=== PATIENT | male | born 1950 | race Caucasian/White ===

== ENCOUNTER 2019-10-11 07:55 | Inpatient (IN) ==
[2019-10-11 08:19] LABS: Basophils % 0.2 %; Eosinophils % 0.2 %; Hematocrit 51.2 % (37.5-50.1); Hemoglobin 16.8 g/dL (12.9-16.9); Immature Granulocytes % 0.5 % (0-4); Lymphocytes % 5.9 %; Mean Corpuscular HGB Conc 32.8 g/dL (31.6-35.5); Mean Corpuscular Hemoglobin 30.5 pg (28.0-33.3); Mean Corpuscular Volume 93.1 fL (83.0-100.0); Mean Platelet Volume 10.8 fL (9.4-12.4); Monocytes # 0.9 K/mcL (0.0-1.3); Monocytes % 5.5 %; Neutrophils # 14.7 K/mcL (1.6-8.9); Platelet Count 221 K/mcL (140-400); Red Cell Distribution Width 14.4 % (11.5-14.5); Segmented Neutrophils % 87.7 %; White Blood Count 16.7 K/mcL (4.3-11.1)
[2019-10-11 08:32] LABS: Alanine Aminotransferase 18 Units/L (7-52); Albumin 4.4 g/dL (3.5-5.7); Albumin/Globulin Ratio 1.4 (1.1-2.2); Alkaline Phosphatase 68 Units/L (34-104); Aspartate Amino Transferase 15 Units/L (13-39); BUN/Creatinine Ratio 16 (6-26); Blood Urea Nitrogen 14 mg/dL (8-23); Calcium 9.4 mg/dL (8.6-10.3); Carbon Dioxide 29 mEq/L (23-29); Chloride 93 mEq/L (98-107); Globulin 3.2 g/dL (2.4-3.5); Glucose 116 mg/dL (70-105); Osmolality,Calculated 271 (280-300); Potassium 3.7 mEq/L (3.5-5.1); Sodium 130 mEq/L (136-145); Total Protein 7.6 g/dL (6.4-8.9); eGFR For African Americans > 60 (> 60); eGFR For Non-African Americans > 60 (> 60)
[2019-10-11] MEDS ORDERED: *HR* OxyCODONE/APAP 5/325 TABLET PO STA (09:31)
[2019-10-11] MEDS ORDERED: Piperacillin/Tazobactam 3.375 GM in Water for inj. (sterile) 20 ML IVP ONE (11:14)
[2019-10-11] MEDS ORDERED: 0.9 % Sodium Chloride 1,000 ML IVC SCH (11:15)
[2019-10-11] MEDS ORDERED: Ipratropium Neb 0.5 MG NEBULIZER IH PRN (11:17)
[2019-10-11 13:21] LABS: Bilirubin,Urine Negative (Negative); Blood,Urine Negative (Negative); Clarity,Urine Clear (Clear); Color,Urine Yellow (Yellow); Glucose,Urine (UA) Normal (Normal); Ketones,Urine Negative (Negative); Leukocyte Esterase,Urine Negative (Negative); Nitrite,Urine Negative (Negative); Protein,Urine 100 mg/dL (Neg-Trace)
[2019-10-11 13:42] LABS: WBC,Urine 0-3 per hpf (0-3)
[2019-10-11 13:43] LABS: Bacteria,Urine Few per hpf (None-Few); Squamous Epithelial Cell,Urine Few per lpf (None-Few)
[2019-10-11] MEDS: 0.9 % Sodium Chloride 1,000 ML IVC SCH (13:55)
[2019-10-11] MEDS: Ipratropium/Albuterol Neb 3 ML IH SCH ×2 (14:52→22:05)
[2019-10-11] MEDS ORDERED: Albuterol 2.5 MG/3 ML NEBULIZER IH SCH (15:00)
[2019-10-11] MEDS: *HR* OxyCODONE/APAP 5/325 TABLET PO PRN ×2 (16:10→22:32)
[2019-10-11] MEDS: Meropenem 1,000 MG in 0.9 % Sodium Chloride Mini Bag 100 ML IVPB SCH (20:43)
[2019-10-11] MEDS ORDERED: Budesonide/Formoterol 80/4.5 1 PUFF INH IH SCH (22:00)
[2019-10-11] MEDS: Budesonide/Formoterol 160/4.5 1 PUFF INH IH SCH (22:14)
[2019-10-12] MEDS: 0.9 % Sodium Chloride 1,000 ML IVC SCH ×2 (00:52→14:07)
[2019-10-12] MEDS: Meropenem 1,000 MG in 0.9 % Sodium Chloride Mini Bag 100 ML IVPB SCH ×2 (01:32→07:51)
[2019-10-12 05:33] LABS: Hematocrit 45.4 % (37.5-50.1); Mean Corpuscular HGB Conc 31.7 g/dL (31.6-35.5); Mean Corpuscular Hemoglobin 29.5 pg (28.0-33.3); Mean Platelet Volume 10.4 fL (9.4-12.4); Platelet Count 180 K/mcL (140-400); Red Blood Count 4.88 M/mcL (4.19-5.50); Red Cell Distribution Width 14.4 % (11.5-14.5); White Blood Count 11.9 K/mcL (4.3-11.1)
[2019-10-12 05:35] LABS: Hemoglobin 14.4 g/dL (12.9-16.9)
[2019-10-12 05:50] LABS: Alanine Aminotransferase 16 Units/L (7-52); Albumin 3.6 g/dL (3.5-5.7); Albumin/Globulin Ratio 1.1 (1.1-2.2); Alkaline Phosphatase 51 Units/L (34-104); Aspartate Amino Transferase 11 Units/L (13-39); BUN/Creatinine Ratio 16 (6-26); Bilirubin,Total 0.6 mg/dL (0.3-1.0); Blood Urea Nitrogen 12 mg/dL (8-23); Calcium 8.1 mg/dL (8.6-10.3); Carbon Dioxide 28 mEq/L (23-29); Chloride 101 mEq/L (98-107); Globulin 3.2 g/dL (2.4-3.5); Glucose 122 mg/dL (70-105); Magnesium 2.1 mg/dL (1.6-2.6); Osmolality,Calculated 279 (280-300); Potassium 3.8 mEq/L (3.5-5.1); Sodium 134 mEq/L (136-145); Total Protein 6.8 g/dL (6.4-8.9); eGFR For African Americans > 60 (> 60); eGFR For Non-African Americans > 60 (> 60)
[2019-10-12] MEDS: *HR* Enoxaparin 40 MG/0.4 ML SYRINGE SQ SCH (06:22)
[2019-10-12] MEDS: *HR* OxyCODONE/APAP 5/325 TABLET PO PRN ×3 (06:27→21:38)
[2019-10-12] MEDS: Ipratropium/Albuterol Neb 3 ML IH SCH ×3 (07:36→21:22)
[2019-10-12] MEDS: Budesonide/Formoterol 160/4.5 1 PUFF INH IH SCH ×2 (07:38→21:21)
[2019-10-12] MEDS: Furosemide 40 MG TABLET PO SCH (07:50)
[2019-10-12] MEDS ORDERED: Levalbuterol Neb 0.63 MG/3 ML ONE (08:39)
[2019-10-12] MEDS ORDERED: Levalbuterol Neb 1.25 MG/3 ML ONE (08:39)
[2019-10-12] MEDS ORDERED: TRIAMCINOLONE ACETONIDE 15 GM TP SCH (09:00)
[2019-10-12 09:30] LABS: Estimated Average Glucose 148 mg/dl
[2019-10-12] MEDS ORDERED: Isovue-370 500 ML BOTTLE IVP ONE (16:23)
[2019-10-12] MEDS: Cefepime HCl 1,000 MG in Water for inj. (sterile) 10 ML IVP SCH (17:15)
[2019-10-13 05:52] LABS: Basophils % 0.5 %; Eosinophils # 0.3 K/mcL (0.0-0.6); Eosinophils % 3.1 %; Hematocrit 43.9 % (37.5-50.1); Hemoglobin 14.1 g/dL (12.9-16.9); Immature Granulocytes % 0.6 % (0-4); Lymphocytes # 1.1 K/mcL (0.6-4.6); Lymphocytes % 12.9 %; Mean Corpuscular HGB Conc 32.1 g/dL (31.6-35.5); Mean Corpuscular Hemoglobin 29.9 pg (28.0-33.3); Mean Corpuscular Volume 93.2 fL (83.0-100.0); Mean Platelet Volume 10.9 fL (9.4-12.4); Monocytes % 11.5 %; Neutrophils # 6.3 K/mcL (1.6-8.9); Platelet Count 199 K/mcL (140-400); Red Blood Count 4.71 M/mcL (4.19-5.50); Red Cell Distribution Width 14.2 % (11.5-14.5); Segmented Neutrophils % 71.4 %; White Blood Count 8.8 K/mcL (4.3-11.1)
[2019-10-13] MEDS: *HR* OxyCODONE/APAP 5/325 TABLET PO PRN ×2 (06:00→12:15)
[2019-10-13] MEDS: Cefepime HCl 1,000 MG in Water for inj. (sterile) 10 ML IVP SCH (06:02)
[2019-10-13] MEDS: *HR* Enoxaparin 40 MG/0.4 ML SYRINGE SQ SCH (06:05)
[2019-10-13 06:07] LABS: BUN/Creatinine Ratio 17 (6-26); Blood Urea Nitrogen 12 mg/dL (8-23); Calcium 8.4 mg/dL (8.6-10.3); Carbon Dioxide 26 mEq/L (23-29); Chloride 103 mEq/L (98-107); Glucose 116 mg/dL (70-105); Osmolality,Calculated 281 (280-300); Potassium 3.7 mEq/L (3.5-5.1); Sodium 135 mEq/L (136-145); eGFR For African Americans > 60 (> 60); eGFR For Non-African Americans > 60 (> 60)
[2019-10-13] MEDS: Ipratropium/Albuterol Neb 3 ML IH SCH ×3 (06:39→21:31)
[2019-10-13] MEDS: Furosemide 40 MG TABLET PO SCH (09:25)
[2019-10-13] MEDS: Budesonide/Formoterol 160/4.5 1 PUFF INH IH SCH ×2 (10:37→21:37)
[2019-10-13] MEDS: Cefepime HCl 2,000 MG in Water for inj. (sterile) 20 ML IVP SCH (17:01)
[2019-10-14] MEDS: *HR* OxyCODONE/APAP 5/325 TABLET PO PRN ×2 (02:59→22:06)
[2019-10-14] MEDS: *HR* Enoxaparin 40 MG/0.4 ML SYRINGE SQ SCH (06:15)
[2019-10-14] MEDS: Cefepime HCl 2,000 MG in Water for inj. (sterile) 20 ML IVP SCH ×2 (06:16→17:57)
[2019-10-14] MEDS: Ipratropium/Albuterol Neb 3 ML IH SCH ×3 (06:17→21:14)
[2019-10-14 06:33] LABS: eGFR For African Americans > 60 (> 60); eGFR For Non-African Americans > 60 (> 60)
[2019-10-14] MEDS: Furosemide 40 MG TABLET PO SCH (08:01)
[2019-10-14] MEDS ORDERED: Aminoglycoside Consult 1 EACH MC ONE (08:44)
[2019-10-14] MEDS: Budesonide/Formoterol 160/4.5 1 PUFF INH IH SCH ×2 (10:54→21:14)
[2019-10-14] MEDS: Furosemide 40 MG/4 ML VIAL IVP SCH (22:07)
[2019-10-15 05:42] LABS: Basophils # 0.1 K/mcL (0.0-0.2); Basophils % 0.6 %; Eosinophils # 0.5 K/mcL (0.0-0.6); Eosinophils % 5.9 %; Hematocrit 47.3 % (37.5-50.1); Immature Granulocytes % 0.4 % (0-4); Lymphocytes # 1.4 K/mcL (0.6-4.6); Lymphocytes % 17.7 %; Mean Corpuscular HGB Conc 31.7 g/dL (31.6-35.5); Mean Corpuscular Hemoglobin 29.6 pg (28.0-33.3); Mean Corpuscular Volume 93.5 fL (83.0-100.0); Mean Platelet Volume 10.5 fL (9.4-12.4); Monocytes % 11.9 %; Neutrophils # 5.1 K/mcL (1.6-8.9); Platelet Count 262 K/mcL (140-400); Red Blood Count 5.06 M/mcL (4.19-5.50); Red Cell Distribution Width 14.1 % (11.5-14.5); Segmented Neutrophils % 63.5 %
[2019-10-15] MEDS: *HR* OxyCODONE/APAP 5/325 TABLET PO PRN (05:50)
[2019-10-15] MEDS: Cefepime HCl 2,000 MG in Water for inj. (sterile) 20 ML IVP SCH (05:51)
[2019-10-15] MEDS: *HR* Enoxaparin 40 MG/0.4 ML SYRINGE SQ SCH (05:53)
[2019-10-15 05:59] LABS: BUN/Creatinine Ratio 16 (6-26); Blood Urea Nitrogen 12 mg/dL (8-23); Carbon Dioxide 30 mEq/L (23-29); Chloride 103 mEq/L (98-107); Glucose 93 mg/dL (70-105); Osmolality,Calculated 291 (280-300); Potassium 3.9 mEq/L (3.5-5.1); Sodium 141 mEq/L (136-145); eGFR For African Americans > 60 (> 60); eGFR For Non-African Americans > 60 (> 60)
[2019-10-15] MEDS: Ipratropium/Albuterol Neb 3 ML IH SCH (06:00)
[2019-10-15] MEDS: Furosemide 40 MG/4 ML VIAL IVP SCH (09:15)
[2019-10-15] MEDS: Budesonide/Formoterol 160/4.5 1 PUFF INH IH SCH (10:47)
[2019-10-15 11:18] VITALS: BP 135/82
== END 2019-10-15 14:35 | disposition home or self-care (01) | DRG 638 ==
LOC: INPGRE 07:55 → EMEROOGRE 07:55 → INPGRE 10:15
PROVIDERS: ADMIT Family Medicine; ATTEND Family Medicine

== ENCOUNTER 2021-08-22 10:44 | Observation (INO) ==
[2021-08-22] MEDS ORDERED: Acetaminophen 325 MG TABLET PO PRN (11:15)
[2021-08-22] MEDS ORDERED: Naloxone 0.4 MG/ML INJ IVP PRN (11:15)
[2021-08-22] MEDS ORDERED: Ondansetron 4 MG/2 ML VIAL IVP PRN (11:15)
[2021-08-22] MEDS ORDERED: Albuterol 2.5 MG/3 ML NEBULIZER IH PRN (11:17)
[2021-08-22] MEDS ORDERED: Ipratropium Neb 0.5 MG NEBULIZER IH PRN (11:17)
[2021-08-22] MEDS: Cefepime HCl 2,000 MG in 0.9 % Sodium Chloride Mini Bag 100 ML IVPB SCH ×2 (12:07→21:40)
[2021-08-22] MEDS: Ipratropium/Albuterol Neb 3 ML IH PRN ×2 (12:12→18:34)
[2021-08-22 12:30] LABS: Basophils # 0.1 K/mcL (0.0-0.2); Basophils % 0.4 %; Eosinophils # 0.4 K/mcL (0.0-0.6); Eosinophils % 3.1 %; Hematocrit 49.5 % (37.5-50.1); Hemoglobin 15.3 g/dL (12.9-16.9); Immature Granulocytes % 0.6 % (0-4); Lymphocytes # 1.3 K/mcL (0.6-4.6); Lymphocytes % 11.3 %; Mean Corpuscular HGB Conc 30.9 g/dL (31.6-35.5); Mean Corpuscular Hemoglobin 28.7 pg (28.0-33.3); Mean Corpuscular Volume 92.9 fL (83.0-100.0); Mean Platelet Volume 9.9 fL (9.4-12.4); Monocytes % 8.4 %; Platelet Count 303 K/mcL (140-400); Red Blood Count 5.33 M/mcL (4.19-5.50); Red Cell Distribution Width 15.1 % (11.5-14.5); Segmented Neutrophils % 76.2 %; White Blood Count 11.8 K/mcL (4.3-11.1)
[2021-08-22 12:38] LABS: BUN/Creatinine Ratio 16 (6-26); Blood Urea Nitrogen 12 mg/dL (8-23); Calcium 8.4 mg/dL (8.6-10.3); Carbon Dioxide 30 mEq/L (23-29); Chloride 102 mEq/L (98-107); Glucose 114 mg/dL (70-105); Osmolality,Calculated 285 (280-300); Sodium 137 mEq/L (136-145); eGFR For African Americans > 60 (> 60); eGFR For Non-African Americans > 60 (> 60)
[2021-08-22] MEDS: Budesonide/Formoterol 80/4.5 1 PUFF INH IH SCH (18:34)
[2021-08-22] MEDS: Furosemide 40 MG TABLET PO SCH (21:39)
[2021-08-23] MEDS: Ipratropium/Albuterol Neb 3 ML IH PRN ×2 (02:14→18:17)
[2021-08-23] MEDS: Cefepime HCl 2,000 MG in 0.9 % Sodium Chloride Mini Bag 100 ML IVPB SCH ×3 (05:07→23:30)
[2021-08-23] MEDS: *HR* Enoxaparin 40 MG/0.4 ML SYRINGE SQ SCH (05:08)
[2021-08-23 06:39] LABS: Hematocrit 51.4 % (37.5-50.1); Hemoglobin 15.9 g/dL (12.9-16.9); Mean Corpuscular HGB Conc 30.9 g/dL (31.6-35.5); Mean Corpuscular Hemoglobin 28.7 pg (28.0-33.3); Mean Corpuscular Volume 92.8 fL (83.0-100.0); Mean Platelet Volume 9.9 fL (9.4-12.4); Platelet Count 277 K/mcL (140-400); Red Blood Count 5.54 M/mcL (4.19-5.50); Red Cell Distribution Width 14.8 % (11.5-14.5); White Blood Count 8.9 K/mcL (4.3-11.1)
[2021-08-23 07:24] LABS: BUN/Creatinine Ratio 14 (6-26); Blood Urea Nitrogen 10 mg/dL (8-23); Calcium 8.6 mg/dL (8.6-10.3); Carbon Dioxide 30 mEq/L (23-29); Chloride 99 mEq/L (98-107); Glucose 129 mg/dL (70-105); Osmolality,Calculated 277 (280-300); Potassium 3.9 mEq/L (3.5-5.1); Sodium 133 mEq/L (136-145); eGFR For African Americans > 60 (> 60); eGFR For Non-African Americans > 60 (> 60)
[2021-08-23] MEDS: Budesonide/Formoterol 80/4.5 1 PUFF INH IH SCH ×2 (07:45→22:45)
[2021-08-23] MEDS: Furosemide 40 MG TABLET PO SCH ×2 (10:19→23:30)
[2021-08-23] MEDS: lisinopriL 10 MG TABLET PO SCH (10:19)
[2021-08-23] MEDS: Vancomycin 2,000 MG/520 ML IV.SOLN IVPB SCH (15:26)
[2021-08-24] MEDS: Vancomycin 2,000 MG/520 ML IV.SOLN IVPB SCH (01:00)
[2021-08-24 04:45] LABS: Hemoglobin 15.6 g/dL (12.9-16.9); Mean Corpuscular HGB Conc 31.8 g/dL (31.6-35.5); Mean Corpuscular Hemoglobin 29.5 pg (28.0-33.3); Mean Corpuscular Volume 92.8 fL (83.0-100.0); Platelet Count 261 K/mcL (140-400); Red Blood Count 5.28 M/mcL (4.19-5.50); Red Cell Distribution Width 14.9 % (11.5-14.5); White Blood Count 9.9 K/mcL (4.3-11.1)
[2021-08-24] MEDS: Ipratropium/Albuterol Neb 3 ML IH PRN ×2 (04:45→10:59)
[2021-08-24 04:59] LABS: BUN/Creatinine Ratio 15 (6-26); Blood Urea Nitrogen 11 mg/dL (8-23); Calcium 8.3 mg/dL (8.6-10.3); Carbon Dioxide 30 mEq/L (23-29); Chloride 100 mEq/L (98-107); Glucose 142 mg/dL (70-105); Magnesium 2.2 mg/dL (1.6-2.6); Osmolality,Calculated 286 (280-300); Potassium 3.8 mEq/L (3.5-5.1); Sodium 137 mEq/L (136-145); eGFR For African Americans > 60 (> 60); eGFR For Non-African Americans > 60 (> 60)
[2021-08-24] MEDS ORDERED: Cefepime HCl 2,000 MG in 0.9 % Sodium Chloride Mini Bag 100 ML IVPB SCH (06:00)
[2021-08-24] MEDS: *HR* Enoxaparin 40 MG/0.4 ML SYRINGE SQ SCH (06:17)
[2021-08-24] MEDS: Cefepime HCl 2,000 MG in 0.9 % Sodium Chloride Mini Bag 100 ML IVPB SCH (07:30)
[2021-08-24] MEDS: Furosemide 40 MG TABLET PO SCH (08:39)
[2021-08-24] MEDS: lisinopriL 10 MG TABLET PO SCH (08:40)
[2021-08-24] MEDS: Budesonide/Formoterol 80/4.5 1 PUFF INH IH SCH (10:54)
[2021-08-24] MEDS ORDERED: Ertapenem 1,000 MG in 0.9 % Sodium Chloride Mini Bag 100 ML IVPB SCH (11:00)
[2021-08-24] MEDS ORDERED: Meropenem 500 MG in 0.9 % Sodium Chloride Mini Bag 100 ML IVPB SCH (11:00)
[2021-08-24 13:50] VITALS: BP 112/72; PULSE 99; RESP 18; TEMP 97.6; O2SAT 90
== END 2021-08-24 13:50 | disposition home or self-care (01) ==
LOC: INPGRE
PROVIDERS: ADMIT Family Medicine; ATTEND Family Medicine

== ENCOUNTER 2021-09-13 12:48 | Inpatient (IN) ==
[2021-09-13] MEDS ORDERED: Ondansetron ODT 4 MG TAB.RAPDIS SL PRN (15:43)
[2021-09-13] MEDS ORDERED: Naloxone 0.4 MG/ML INJ IVP PRN (15:43)
[2021-09-13] MEDS ORDERED: MOM Conc 10 ML UD.LIQ PO PRN (15:43)
[2021-09-13] MEDS ORDERED: Ondansetron 4 MG/2 ML VIAL IVP PRN (15:43)
[2021-09-13] MEDS ORDERED: Acetaminophen 325 MG TABLET PO PRN (15:43)
[2021-09-13] MEDS ORDERED: Ibuprofen 400 MG TABLET PO PRN (15:43)
[2021-09-13] MEDS ORDERED: Mag Hydrox/Al Hydrox/Simeth 30 ML UDC PO PRN (15:43)
[2021-09-13 16:59] LABS: Basophils # 0.1 K/mcL (0.0-0.2); Basophils % 0.7 %; Eosinophils # 0.4 K/mcL (0.0-0.6); Eosinophils % 4.1 %; Hematocrit 51.9 % (37.5-50.1); Hemoglobin 16.2 g/dL (12.9-16.9); Immature Granulocytes % 0.4 % (0-4); Lymphocytes # 1.6 K/mcL (0.6-4.6); Lymphocytes % 16.7 %; Mean Corpuscular HGB Conc 31.2 g/dL (31.6-35.5); Mean Corpuscular Hemoglobin 29.6 pg (28.0-33.3); Mean Corpuscular Volume 94.7 fL (83.0-100.0); Mean Platelet Volume 9.6 fL (9.4-12.4); Monocytes # 0.8 K/mcL (0.0-1.3); Monocytes % 8.6 %; Neutrophils # 6.7 K/mcL (1.6-8.9); Platelet Count 276 K/mcL (140-400); Red Blood Count 5.48 M/mcL (4.19-5.50); Red Cell Distribution Width 15.5 % (11.5-14.5); Segmented Neutrophils % 69.5 %; White Blood Count 9.6 K/mcL (4.3-11.1)
[2021-09-13] MEDS: Cefepime HCl 1,000 MG in 0.9 % Sodium Chloride Mini Bag 100 ML IVPB SCH (17:13)
[2021-09-13 17:16] LABS: Alanine Aminotransferase 8 Units/L (7-52); Albumin 3.8 g/dL (3.5-5.7); Alkaline Phosphatase 55 Units/L (34-104); Aspartate Amino Transferase 10 Units/L (13-39); BUN/Creatinine Ratio 20 (6-26); Bilirubin,Total 0.4 mg/dL (0.3-1.0); Blood Urea Nitrogen 17 mg/dL (8-23); Calcium 9.5 mg/dL (8.6-10.3); Carbon Dioxide 33 mEq/L (23-29); Chloride 99 mEq/L (98-107); Globulin 3.9 g/dL (2.4-3.5); Glucose 111 mg/dL (70-105); Magnesium 2.2 mg/dL (1.6-2.6); Osmolality,Calculated 286 (280-300); Phosphorous 3.5 mg/dL (2.7-4.5); Sodium 137 mEq/L (136-145); Total Protein 7.7 g/dL (6.4-8.9); eGFR For African Americans > 60 (> 60); eGFR For Non-African Americans > 60 (> 60)
[2021-09-13 17:38] LABS: Bilirubin,Urine Negative (Negative); Blood,Urine Trace-intact (Negative); Clarity,Urine Clear (Clear); Color,Urine Yellow (Yellow); Glucose,Urine (UA) Normal (Normal); Ketones,Urine Negative (Negative); Leukocyte Esterase,Urine Negative (Negative); Nitrite,Urine Negative (Negative); PH,Urine 6.5 pH Units (5.0-8.0); Protein,Urine 30 mg/dL (Neg-Trace); Specific Gravity,Urine >= 1.030 (1.010-1.025); Urobilinogen,Urine Normal (Normal)
[2021-09-13 18:08] LABS: Squamous Epithelial Cell,Urine Few per hpf (None-Few)
[2021-09-13] MEDS: Melatonin 3 MG TABLET PO PRN (20:50)
[2021-09-13] MEDS: *HR* HYDROcodone/Acet 5/325 mg TABLET PO PRN (20:51)
[2021-09-13] MEDS: Ipratropium/Albuterol Neb 3 ML IH SCH (21:51)
[2021-09-13] MEDS: Budesonide/Formoterol 160/4.5 1 PUFF INH IH SCH (21:51)
[2021-09-14] MEDS: Ipratropium/Albuterol Neb 3 ML IH SCH ×4 (04:20→20:55)
[2021-09-14] MEDS ORDERED: *HR* Enoxaparin 40 MG/0.4 ML SYRINGE SQ SCH (06:00)
[2021-09-14] MEDS ORDERED: Vancomycin 2,000 MG/520 ML IV.SOLN IVPB SCH (06:00)
[2021-09-14 06:20] LABS: Hematocrit 50.7 % (37.5-50.1); Hemoglobin 15.8 g/dL (12.9-16.9); Mean Corpuscular HGB Conc 31.2 g/dL (31.6-35.5); Mean Corpuscular Hemoglobin 29.5 pg (28.0-33.3); Mean Corpuscular Volume 94.8 fL (83.0-100.0); Platelet Count 272 K/mcL (140-400); Red Blood Count 5.35 M/mcL (4.19-5.50); Red Cell Distribution Width 15.6 % (11.5-14.5); White Blood Count 9.2 K/mcL (4.3-11.1)
[2021-09-14] MEDS: *HR* Enoxaparin 40 MG/0.4 ML SYRINGE SQ SCH (06:20)
[2021-09-14] MEDS: Cefepime HCl 1,000 MG in 0.9 % Sodium Chloride Mini Bag 100 ML IVPB SCH ×2 (06:21→16:33)
[2021-09-14 06:41] LABS: BUN/Creatinine Ratio 18 (6-26); Blood Urea Nitrogen 13 mg/dL (8-23); Calcium 9.2 mg/dL (8.6-10.3); Carbon Dioxide 34 mEq/L (23-29); Chloride 97 mEq/L (98-107); Glucose 144 mg/dL (70-105); Magnesium 2.2 mg/dL (1.6-2.6); Osmolality,Calculated 285 (280-300); Potassium 4.1 mEq/L (3.5-5.1); Sodium 136 mEq/L (136-145); eGFR For African Americans > 60 (> 60); eGFR For Non-African Americans > 60 (> 60)
[2021-09-14] MEDS: Budesonide/Formoterol 160/4.5 1 PUFF INH IH SCH ×2 (06:56→20:54)
[2021-09-14] MEDS: Furosemide 40 MG TABLET PO SCH (09:32)
[2021-09-14] MEDS: lisinopriL 10 MG TABLET PO SCH (09:32)
[2021-09-14] MEDS: Vancomycin 2,000 MG/520 ML IV.SOLN IVPB SCH ×2 (09:32→20:51)
[2021-09-14] MEDS: *HR* HYDROcodone/Acet 5/325 mg TABLET PO PRN (18:09)
[2021-09-15] MEDS: Ipratropium/Albuterol Neb 3 ML IH SCH ×4 (03:40→21:54)
[2021-09-15] MEDS: Cefepime HCl 1,000 MG in 0.9 % Sodium Chloride Mini Bag 100 ML IVPB SCH ×2 (04:45→17:34)
[2021-09-15] MEDS: *HR* Enoxaparin 40 MG/0.4 ML SYRINGE SQ SCH (04:45)
[2021-09-15 06:07] LABS: Hemoglobin 14.7 g/dL (12.9-16.9); Mean Corpuscular HGB Conc 31.3 g/dL (31.6-35.5); Mean Corpuscular Hemoglobin 29.3 pg (28.0-33.3); Mean Corpuscular Volume 93.8 fL (83.0-100.0); Mean Platelet Volume 9.9 fL (9.4-12.4); Platelet Count 245 K/mcL (140-400); Red Blood Count 5.01 M/mcL (4.19-5.50); Red Cell Distribution Width 15.7 % (11.5-14.5); White Blood Count 8.6 K/mcL (4.3-11.1)
[2021-09-15 06:21] LABS: BUN/Creatinine Ratio 16 (6-26); Blood Urea Nitrogen 11 mg/dL (8-23); Carbon Dioxide 31 mEq/L (23-29); Chloride 97 mEq/L (98-107); Glucose 138 mg/dL (70-105); Magnesium 2.1 mg/dL (1.6-2.6); Osmolality,Calculated 280 (280-300); Potassium 3.6 mEq/L (3.5-5.1); Sodium 134 mEq/L (136-145); eGFR For African Americans > 60 (> 60); eGFR For Non-African Americans > 60 (> 60)
[2021-09-15] MEDS: lisinopriL 10 MG TABLET PO SCH (07:40)
[2021-09-15] MEDS: Vancomycin 2,000 MG/520 ML IV.SOLN IVPB SCH ×2 (07:40→20:39)
[2021-09-15] MEDS: Furosemide 40 MG TABLET PO SCH (07:40)
[2021-09-15] MEDS: Budesonide/Formoterol 160/4.5 1 PUFF INH IH SCH ×2 (09:42→21:55)
[2021-09-16] MEDS: Ipratropium/Albuterol Neb 3 ML IH SCH ×4 (04:35→20:01)
[2021-09-16] MEDS: Cefepime HCl 1,000 MG in 0.9 % Sodium Chloride Mini Bag 100 ML IVPB SCH ×2 (05:10→17:17)
[2021-09-16] MEDS: *HR* Enoxaparin 40 MG/0.4 ML SYRINGE SQ SCH (05:10)
[2021-09-16] MEDS: Furosemide 40 MG TABLET PO SCH (07:25)
[2021-09-16] MEDS: Vancomycin 2,000 MG/520 ML IV.SOLN IVPB SCH ×2 (07:25→20:01)
[2021-09-16] MEDS: lisinopriL 10 MG TABLET PO SCH (07:25)
[2021-09-16] MEDS: Budesonide/Formoterol 160/4.5 1 PUFF INH IH SCH ×2 (09:48→20:01)
[2021-09-17] MEDS: Ipratropium/Albuterol Neb 3 ML IH SCH ×4 (03:57→21:37)
[2021-09-17] MEDS: *HR* Enoxaparin 40 MG/0.4 ML SYRINGE SQ SCH (05:19)
[2021-09-17 05:28] LABS: Hemoglobin 14.9 g/dL (12.9-16.9); Mean Corpuscular Hemoglobin 29.5 pg (28.0-33.3); Mean Platelet Volume 9.5 fL (9.4-12.4); Platelet Count 230 K/mcL (140-400); Red Blood Count 5.05 M/mcL (4.19-5.50); Red Cell Distribution Width 15.9 % (11.5-14.5); White Blood Count 7.6 K/mcL (4.3-11.1)
[2021-09-17] MEDS: Cefepime HCl 1,000 MG in 0.9 % Sodium Chloride Mini Bag 100 ML IVPB SCH (05:32)
[2021-09-17 05:42] LABS: Alanine Aminotransferase 11 Units/L (7-52); Albumin 3.5 g/dL (3.5-5.7); Alkaline Phosphatase 50 Units/L (34-104); Aspartate Amino Transferase 12 Units/L (13-39); BUN/Creatinine Ratio 14 (6-26); Bilirubin,Total 0.5 mg/dL (0.3-1.0); Blood Urea Nitrogen 10 mg/dL (8-23); Calcium 8.6 mg/dL (8.6-10.3); Carbon Dioxide 30 mEq/L (23-29); Chloride 103 mEq/L (98-107); Globulin 3.4 g/dL (2.4-3.5); Glucose 150 mg/dL (70-105); Magnesium 2.2 mg/dL (1.6-2.6); Osmolality,Calculated 290 (280-300); Sodium 139 mEq/L (136-145); Total Protein 6.9 g/dL (6.4-8.9); eGFR For African Americans > 60 (> 60); eGFR For Non-African Americans > 60 (> 60)
[2021-09-17] MEDS ORDERED: Cefepime HCl 1,000 MG in Water for inj. (sterile) 10 ML IVP ONE (06:00)
[2021-09-17] MEDS: Aspirin Enteric Coated 81 MG Tablet PO SCH (08:14)
[2021-09-17] MEDS: lisinopriL 10 MG TABLET PO SCH (08:14)
[2021-09-17] MEDS: Furosemide 40 MG TABLET PO SCH (08:14)
[2021-09-17] MEDS: Vancomycin 2,000 MG/520 ML IV.SOLN IVPB SCH ×2 (08:16→21:02)
[2021-09-17] MEDS: Budesonide/Formoterol 160/4.5 1 PUFF INH IH SCH ×2 (09:33→21:37)
[2021-09-17 10:15] LABS: C-Reactive Protein 31 mg/L (Less than 10)
[2021-09-17] MEDS ORDERED: Cefepime HCl 2,000 MG in 0.9 % Sodium Chloride Mini Bag 100 ML IVPB SCH (18:00)
[2021-09-17] MEDS: Melatonin 3 MG TABLET PO PRN (21:11)
[2021-09-18] MEDS: Ipratropium/Albuterol Neb 3 ML IH SCH ×4 (04:06→20:04)
[2021-09-18] MEDS: *HR* Enoxaparin 40 MG/0.4 ML SYRINGE SQ SCH (05:40)
[2021-09-18] MEDS: Cefepime HCl 2,000 MG in 0.9 % Sodium Chloride Mini Bag 100 ML IVPB SCH ×2 (07:55→19:37)
[2021-09-18] MEDS: Furosemide 40 MG TABLET PO SCH (07:56)
[2021-09-18] MEDS: lisinopriL 10 MG TABLET PO SCH (07:56)
[2021-09-18] MEDS: Aspirin Enteric Coated 81 MG Tablet PO SCH (07:56)
[2021-09-18] MEDS: Budesonide/Formoterol 160/4.5 1 PUFF INH IH SCH ×2 (09:39→20:03)
[2021-09-18] MEDS: Vancomycin 2,000 MG/520 ML IV.SOLN IVPB SCH ×2 (10:02→21:59)
[2021-09-18 15:01] LABS: Hematocrit 47.4 % (37.5-50.1); Hemoglobin 15.2 g/dL (12.9-16.9); Mean Corpuscular HGB Conc 32.1 g/dL (31.6-35.5); Mean Corpuscular Volume 93.7 fL (83.0-100.0); Mean Platelet Volume 9.4 fL (9.4-12.4); Platelet Count 224 K/mcL (140-400); Red Blood Count 5.06 M/mcL (4.19-5.50); Red Cell Distribution Width 15.7 % (11.5-14.5); White Blood Count 5.8 K/mcL (4.3-11.1)
[2021-09-18] MEDS: Dexamethasone Sodium Phos/PF 10 MG/ML VIAL IVP SCH (15:26)
[2021-09-18 15:47] LABS: Alanine Aminotransferase 16 Units/L (7-52); Albumin 3.6 g/dL (3.5-5.7); Albumin/Globulin Ratio 1.1 (1.1-2.2); Alkaline Phosphatase 55 Units/L (34-104); Aspartate Amino Transferase 19 Units/L (13-39); BUN/Creatinine Ratio 12 (6-26); Bilirubin,Total 0.3 mg/dL (0.3-1.0); Blood Urea Nitrogen 11 mg/dL (8-23); Calcium 8.7 mg/dL (8.6-10.3); Carbon Dioxide 29 mEq/L (23-29); Chloride 101 mEq/L (98-107); Globulin 3.4 g/dL (2.4-3.5); Glucose 103 mg/dL (70-105); Magnesium 1.9 mg/dL (1.6-2.6); Osmolality,Calculated 286 (280-300); Potassium 3.8 mEq/L (3.5-5.1); Sodium 138 mEq/L (136-145); eGFR For African Americans > 60 (> 60); eGFR For Non-African Americans > 60 (> 60)
[2021-09-18] MEDS ORDERED: Remdesivir 200 MG in 0.9 % Sodium Chloride 100 ML IVPB ONE ×2 (16:13→20:00)
[2021-09-18] MEDS: Ipratropium 1 PUFF INHALER IH SCH ×2 (16:38→20:02)
[2021-09-18 19:13] LABS: C-Reactive Protein 25 mg/L (Less than 10)
[2021-09-18 19:31] LABS: Ferritin 101 ng/mL (20-250)
[2021-09-18] MEDS: Furosemide 40 MG/4 ML VIAL IVP SCH (20:16)
[2021-09-19] MEDS: Ipratropium 1 PUFF INHALER IH SCH ×7 (00:57→23:40)
[2021-09-19] MEDS: *HR* Enoxaparin 40 MG/0.4 ML SYRINGE SQ SCH (04:04)
[2021-09-19] MEDS: Ipratropium/Albuterol Neb 3 ML IH SCH (04:47)
[2021-09-19 05:46] LABS: Albumin 3.8 g/dL (3.5-5.7); Albumin/Globulin Ratio 1.1 (1.1-2.2); Bilirubin,Indirect 0.3 mg/dL (0.0-1.0); Bilirubin,Total 0.3 mg/dL (0.3-1.0); Globulin 3.5 g/dL (2.4-3.5); Total Protein 7.3 g/dL (6.4-8.9)
[2021-09-19] MEDS: Budesonide/Formoterol 160/4.5 1 PUFF INH IH SCH ×2 (07:39→20:21)
[2021-09-19] MEDS: lisinopriL 10 MG TABLET PO SCH (08:59)
[2021-09-19] MEDS: Aspirin Enteric Coated 81 MG Tablet PO SCH (08:59)
[2021-09-19] MEDS: Cefepime HCl 2,000 MG in 0.9 % Sodium Chloride Mini Bag 100 ML IVPB SCH ×2 (09:00→19:45)
[2021-09-19] MEDS: Furosemide 40 MG/4 ML VIAL IVP SCH ×2 (09:01→20:25)
[2021-09-19] MEDS: Dexamethasone Sodium Phos/PF 10 MG/ML VIAL IVP SCH ×2 (09:17→09:45)
[2021-09-19] MEDS ORDERED: Vancomycin 2,000 MG/520 ML IV.SOLN IVPB SCH (11:00)
[2021-09-19] MEDS ORDERED: Remdesivir 100 MG in 0.9 % Sodium Chloride 100 ML IVPB SCH (17:00)
[2021-09-19] MEDS: Remdesivir 100 MG in 0.9 % Sodium Chloride 100 ML IVPB SCH (20:27)
[2021-09-20] MEDS: Ipratropium 1 PUFF INHALER IH SCH ×5 (03:35→20:14)
[2021-09-20] MEDS: *HR* Enoxaparin 40 MG/0.4 ML SYRINGE SQ SCH (04:45)
[2021-09-20 06:32] LABS: Basophils % 0.3 %; Eosinophils % 0.3 %; Hematocrit 50.4 % (37.5-50.1); Hemoglobin 15.8 g/dL (12.9-16.9); Lymphocytes # 1.3 K/mcL (0.6-4.6); Lymphocytes % 20.8 %; Mean Corpuscular HGB Conc 31.3 g/dL (31.6-35.5); Mean Corpuscular Hemoglobin 29.5 pg (28.0-33.3); Mean Platelet Volume 10.2 fL (9.4-12.4); Monocytes # 1.3 K/mcL (0.0-1.3); Monocytes % 20.6 %; Neutrophils # 3.5 K/mcL (1.6-8.9); Platelet Count 256 K/mcL (140-400); Red Blood Count 5.36 M/mcL (4.19-5.50); Red Cell Distribution Width 15.8 % (11.5-14.5); White Blood Count 6.2 K/mcL (4.3-11.1)
[2021-09-20 06:49] LABS: Albumin 3.8 g/dL (3.5-5.7); Albumin/Globulin Ratio 1.1 (1.1-2.2); Bilirubin,Direct 0.1 mg/dL (0.0-0.2); Bilirubin,Indirect 0.2 mg/dL (0.0-1.0); Bilirubin,Total 0.3 mg/dL (0.3-1.0); Globulin 3.4 g/dL (2.4-3.5); Total Protein 7.2 g/dL (6.4-8.9)
[2021-09-20 06:50] LABS: BUN/Creatinine Ratio 26 (6-26); Blood Urea Nitrogen 19 mg/dL (8-23); Calcium 8.6 mg/dL (8.6-10.3); Carbon Dioxide 32 mEq/L (23-29); Chloride 97 mEq/L (98-107); Glucose 150 mg/dL (70-105); Osmolality,Calculated 287 (280-300); Potassium 3.7 mEq/L (3.5-5.1); Sodium 136 mEq/L (136-145); eGFR For African Americans > 60 (> 60); eGFR For Non-African Americans > 60 (> 60)
[2021-09-20 07:38] LABS: Platelet Estimate Normal (Normal)
[2021-09-20] MEDS: Cefepime HCl 2,000 MG in 0.9 % Sodium Chloride Mini Bag 100 ML IVPB SCH ×2 (07:55→19:35)
[2021-09-20] MEDS: Aspirin Enteric Coated 81 MG Tablet PO SCH (07:56)
[2021-09-20] MEDS: Dexamethasone Sodium Phos/PF 10 MG/ML VIAL IVP SCH (07:56)
[2021-09-20] MEDS: lisinopriL 10 MG TABLET PO SCH (07:56)
[2021-09-20] MEDS: Furosemide 40 MG/4 ML VIAL IVP SCH ×2 (07:57→20:16)
[2021-09-20] MEDS: Budesonide/Formoterol 160/4.5 1 PUFF INH IH SCH ×2 (08:00→20:14)
[2021-09-20 08:31] LABS: Ferritin 91 ng/mL (20-250)
[2021-09-20] MEDS: Remdesivir 100 MG in 0.9 % Sodium Chloride 100 ML IVPB SCH (20:17)
[2021-09-21] MEDS: Ipratropium 1 PUFF INHALER IH SCH ×3 (00:11→07:40)
[2021-09-21] MEDS: *HR* Enoxaparin 40 MG/0.4 ML SYRINGE SQ SCH (04:37)
[2021-09-21 06:36] LABS: Albumin 3.8 g/dL (3.5-5.7); Albumin/Globulin Ratio 1.1 (1.1-2.2); Bilirubin,Direct 0.1 mg/dL (0.0-0.2); Bilirubin,Indirect 0.2 mg/dL (0.0-1.0); Bilirubin,Total 0.3 mg/dL (0.3-1.0); Globulin 3.6 g/dL (2.4-3.5); Total Protein 7.4 g/dL (6.4-8.9)
[2021-09-21] MEDS: Budesonide/Formoterol 160/4.5 1 PUFF INH IH SCH (07:49)
[2021-09-21] MEDS: Aspirin Enteric Coated 81 MG Tablet PO SCH (08:04)
[2021-09-21] MEDS: Furosemide 40 MG/4 ML VIAL IVP SCH (08:04)
[2021-09-21] MEDS: lisinopriL 10 MG TABLET PO SCH (08:04)
[2021-09-21] MEDS: Cefepime HCl 2,000 MG in 0.9 % Sodium Chloride Mini Bag 100 ML IVPB SCH (08:05)
[2021-09-21] MEDS: Dexamethasone Sodium Phos/PF 10 MG/ML VIAL IVP SCH (08:11)
[2021-09-21] MEDS ORDERED: Ertapenem 1,000 MG in 0.9 % Sodium Chloride Mini Bag 100 ML IVPB SCH (09:00)
[2021-09-21 10:11] VITALS: O2SAT 90
[2021-09-21 11:27] VITALS: BP 131/93; PULSE 95; RESP 18; TEMP 98.3
== END 2021-09-21 16:15 | disposition home or self-care (01) | DRG 602 ==
LOC: INPGRE
PROVIDERS: ADMIT Family Medicine; ATTEND Family Medicine